=== PATIENT | female | born 1950 | race Caucasian/White ===

== ENCOUNTER 2018-12-26 15:39 | Outpatient (CLI) | payer OTHER, SELFPAY ==
[2018-12-26 17:11] LABS: Calculated LDL 124 mg/dL; Cholesterol 211 mg/dL (50-200); Glucose 136 mg/dL (70-100); HDL Cholesterol 71 mg/dL (40-60); Triglyceride 81 mg/dL (30-150)
== END 2018-12-26 15:59 ==
PROVIDERS: PCP Family Medicine; Visit Provider Family Medicine
DX: Z13.1 Encounter for screening for diabetes mellitus (principal); Z13.220 Encounter for screening for lipoid disorders
CPT/HCPCS: 36415; 80061; 82947; 83721

== ENCOUNTER 2019-12-10 01:10 | Outpatient (CLI) | payer OTHER, SELFPAY ==
[2019-12-10 14:08] LABS: Hemoglobin A1C 5.7 % (3.8-5.6)
== END 2019-12-10 01:30 ==
PROVIDERS: PCP Family Medicine; Visit Provider Family Medicine
DX: R73.9 Hyperglycemia, unspecified (principal)
CPT/HCPCS: 36415; 83036

== ENCOUNTER 2020-03-18 13:31 | Outpatient (CLI) | payer OTHER, SELFPAY ==
--- NOTE | 2020-03-18 14:00 | DI.RAD_ITS ---
EXAM: XR HEEL LT OS CALCIS CLINICAL HISTORY: heel pain with ambulation PAIN LT FOOT M79.672. TECHNIQUE: 2D digital imaging was performed. COMPARISON: No exams were available for comparison FINDINGS: BONES: No acute fracture is present. No bony destructive lesion is seen. Small plantar calcaneal spu r. JOINTS: No dislocation present. SOFT TISSUE: Normal. IMPRESSION: Small plantar spur. DATA REPOSITORY: RADIATION DOSE DELIVERED:
--- NOTE | 2020-03-18 14:39 | DI.RAD_ITS ---
EXAM: XR HEEL RT OS CALCIS CLINICAL HISTORY: heel pain with ambulation PAIN RT FOOT M79.671,. TECHNIQUE: 2D digital imaging was performed. COMPARISON: No exams were available for comparison FINDINGS: BONES: No acute fracture is present. No bony destructive lesion is seen. Small spur at the plantar s urface of the calcaneus. JOINTS: No dislocation present. SOFT TISSUE: Normal. IMPRESSION: Small plantar spur. DATA REPOSITORY: RADIATION DOSE DELIVERED:
== END 2020-03-18 13:51 ==
PROVIDERS: PCP Family Medicine; Visit Provider Nurse Practitioner Family
DX: M77.32 Calcaneal spur, left foot (principal); M77.31 Calcaneal spur, right foot
CPT/HCPCS: 73650

== ENCOUNTER 2020-09-23 07:16 | Emergency (ER) | payer OTHER, SELFPAY ==
[2020-09-23 07:21] VITALS: BP 181/114; PULSE 75; RESP 12; O2SAT 98
--- NOTE | 2020-09-23 07:30 | DI.RAD_ITS ---
EXAM: XR FINGER LT MIDDLE CLINICAL HISTORY: suspected distal extensor tendon tear, r/o fx. TECHNIQUE: 2D digital imaging was performed. COMPARISON: No exams were available for comparison FINDINGS: There is flexion deformity at the DIP joint of the 3rd-middle finger. A small calcific density is no delmar volar to this level possibly representing avulsion fracture. The flexion deformity implies that there is unopposed flexion implying extensor tendon injury. There does not appear to be an obvious l aceration. There is no radiopaque foreign body. IMPRESSION: DATA REPOSITORY: RADIATION DOSE DELIVERED:
--- NOTE | 2020-09-23 07:35 | ED.GENADUL_ITS ---
Discharge Plan Disposition Patient Disposition: HOME Condition: Stable Discharge Details Clinical Impression: Mallet deformity of left middle finger Primary Care Provider: Rafael Loyola ED Provider: Patricia Carlton Home Meds and New Rx's Prescriptions: Continued metformin 500 mg tablet 500 mg PO BID Qty: 180 RF: 3 Discharge Instructions Instructions: Tendon Rupture (ED) Additional Instructions: Keep the splint in place at all times. You can remove the splint briefly for hand washing or showering but replace immediately when finished. Be sure to apply tape to both the middle and end parts of your splint to keep the tip of your finger fully extended. An appointment has been made for you with orthopedist Dr. Edouard on September 29 at 11 AM. Return immediately to the emergency department if you develop any worsening or new concerning symptoms. Referrals: Pop Edouard MD [ [facility] STAFF PHYSICIAN] - Discharge Data Discharge Physician: Patricia Carlton Medical Decision Making 59-year-old female presents with left third finger injury sustained while cleaning her floor at home this morning. Patient has a flexion deformity with inability to extend at the DIP joint of the left third middle finger. There is no ecchymosis, edema or tenderness. The left third middle finger PIP and MCP joints have normal extension. Appears consistent with mallet finger. Will obtain an x-ray to rule out avulsion fracture. Imaging reviewed with Dr. Edouard -appears consistent with classic mallet finger injury. No obvious fracture or dislocation. He recommends splint applied to the dorsal aspect with taping to keep DIP in full extension. Splint applied to patient's finger. Patient was given tape for home to reapply after handwashing and showering. An appointment was made for patient with Dr. Edouard for a full 6:11 AM. Usual and customary return precautions given prior to discharge. Patient's blood pressure elevated while in the ED. Rechecked and slightly down trended. Patient states she does not have a known history of hypertension and does not take blood pressure medication. She denies any chest pain or headache. She is advised to call her primary care doctor today to arrange a follow-up appointment for recheck of her blood pressure and consideration for starting blood pressure medication. Medical Records Medical records reviewed: Yes I reviewed the patient's medical records. Imaging Data Radiologic Study: Radiologist's impression: XR FINGER LT MIDDLE CLINICAL HISTORY: suspected distal extensor tendon tear, r/o fx. TECHNIQUE: 2D digital imaging was performed. COMPARISON: No exams were available for comparison FINDINGS: There is flexion deformity at the DIP joint of the 3rd-middle finger. A small calcific density is noted volar to this level possibly representing avulsion fracture. The flexion deformity implies that there is unopposed flexion implying extensor tendon injury. There does not appear to be an obvious lacera tion. There is no radiopaque foreign body. HPI General Mode of arrival: ambulatory . Date/Time Provider Initiated Documentation: 09/23/20 07:35 . Limitations to Documentation: no limitations . Information obtained by: patient . HPI Narrative: Patient is a 69-year-old female who presents with left third finger injury sustained while cleaning a floor at home this morning. Patient states she was cleaning vigorously with her left hand when she felt a crack in her distal left middle finger. She has minimal pain but cannot straighten the tip of her left middle finger. She denies any other injuries. Related Data Home Medications Medication Instructions Recorded Confirmed metformin 500 mg tablet 500 mg PO BID #180 tab 07/24/20 09/23/20 Previous Rx's Medication Instructions Recorded metformin 500 mg tablet 500 mg PO BID #180 tab 07/24/20 Allergies Allergy/AdvReac Type Severity Reaction Status Date / Time zolpidem [Zolpidem] Allergy Intermediate rash Verified 09/23/20 07:28 General Stated Complaint: Orthopedic OMAR: 4 Review of Systems All systems reviewed & are unremarkable except as noted in HPI and below PFSH Medical History Sensorineural hearing loss of both ears Surgical History Bladder Surgery suspension Colonoscopy - MAC (05/28/13) Vaginal hysterectomy left ovary remains Family History Mother , 76 Diabetes Lymphoma Father , 85 No problems noted. Brother Diabetes Maternal Grandmother Stroke Paternal Grandmother Cancer Brother No problems noted. Brother No problems noted. Sister No problems noted. Sister No problems noted. Sister No problems noted. Sister No problems noted. Son No problems noted. Daughter No problems noted. Social History (Reviewed 03/18/20 @ 18:07 by OTONIEL Worthington Smoking/Tobacco Use Status: Never Smoking risk assessment performed?: Yes Alcohol Intake: current Alcohol Intake frequency: a few times a month Alcohol type: beer and wine Drug use: Never Substance use type: does not use Caregiver/Support person: No Household members: children and other Details: grandchild Housing: house Communication Needs: None Do you need help understanding health information?: Never Pets and animals: Yes Pets and animals: cat(s), dog(s) and other Details: rat Sexually active: Yes Do you think of yourself as: straight/heterosexual Current gender identity: female and decline to answer What is your relationship status?: refused to answer How often do you talk on the phone with friends or family?: decline to answer How often do you get together with friends or relatives?: decline to answer How often do you attend hoahaoism or cheondoism services?: decline to answer Do you belong to any clubs or organized social groups?: decline to answer Panel score (0-1 are the most socially isolated patients): 0 What type of physical activity do you participate in: decline to answer Duration: 15-30 minutes/day Frequency: 1-2 times per week Renetta/Buddhism: No preference Special renetta needs: No Seatbelt use: always Drive intox or ride w/intox driver messenger: No Do you feel safe at home: Yes Do you feel safe in your relationship?: Yes Exam Const General: cooperative, healthy appearing and no acute distress HENMT Head: normal to inspection Mouth: oral mucosae normal Eyes General: appearance normal, both eyes and all related structures Neck Neck: normal visual inspection Resp Effort & Inspection: normal respiratory effort and able to speak in complete sentences Cardio Rate: regular rate Skin General skin exam: no rashes or lesions noted Neuro General: patient alert, patient awake and patient oriented x3 Motor: muscle tone normal throughout Extrem Hand/finger images: 1. Flexion deformity with inability to extend at DIP joint. Normal extension at PIP and MCP joint L 3rd finger. 2. Flexion deformity with inability to extend at DIP joint. Other: There is no L 3rd middle finger erythema, edema, ecchymosis or tenderness to palpation. Psych Appearance: grossly normal Affect: normal affect Course Vital Signs Vital signs: Vital Signs Pulse 75 09/23/20 07:21 Respiratory Rate 12 09/23/20 07:21 Blood Pressure 181/114 H 09/23/20 07:21 Pulse Oximetry 98 09/23/20 07:21 Pulse 75 09/23/20 07:21 Respiratory Rate 12 09/23/20 07:21 Respiratory Effort Non-Labored 09/23/20 07:25 Blood Pressure 181/114 H 09/23/20 07:21 Blood Pressure Position Sitting 09/23/20 07:21 Pulse Oximetry 98 09/23/20 07:21 Oxygen Delivery Method Room Air 09/23/20 07:21 Oxygen Flow Rate 0 09/23/20 07:21 Pain Level 3 09/23/20 07:25 Procedures Orthopedic Splinting/Casting Injury #1: Side: left Upper Extremity Injury Location: finger Upper Extremity Immobilizer: aluminum form splint
[2020-09-23 08:21] VITALS: BP 177/102; PULSE 76; RESP 12; O2SAT 98
== END 2020-09-23 08:23 | disposition home or self-care (01) ==
PROVIDERS: Emergency Provider Physician Assistant; PCP Family Medicine
DX: M20.012 Mallet finger of left finger(s) (principal)
CPT/HCPCS: 29130; 99283; 73140

== ENCOUNTER 2021-11-24 16:24 | Outpatient (CLI) | payer BC, SELFPAY ==
--- NOTE | 2021-11-24 16:15 | RT.EKG_ITS ---
APPROVED REPORT Exam: Resting ECG Reason for Exam: chest pain Patient Location: O HR:73 bpm ECG Measurements Heart Rate 73 AXIS MD 137 P 63 QRSd 68 QRS 28 QT 405 T 31 QTc 448 Conclusion Sinus rhythm...normal P axis, V-rate 60- 99 Probable left atrial enlargement...P >50mS, <-0.10mV V1
== END 2021-11-24 16:25 | disposition home or self-care (01) ==
PROVIDERS: PCP Family Medicine; Visit Provider Family Medicine
DX: R07.9 Chest pain, unspecified (principal); R10.9 Unspecified abdominal pain; R73.9 Hyperglycemia, unspecified; Z13.6 Encounter for screening for cardiovascular disorders
CPT/HCPCS: 93010

== ENCOUNTER 2021-11-30 01:40 | Outpatient (CLI) | payer BC, SELFPAY ==
[2021-11-30 16:26] LABS: HCT 40.2 % (36.0-46.0); HGB 13.1 g/dL (11.2-15.7); MCH 29.4 pg (27.0-33.0); MCHC 32.6 % (32.0-36.0); MCV 90 fL (80-95); MPV 11.3 fL (8.0-11.0); Platelet Count 254 10^3/uL (130-400); RBC 4.46 10^6/uL (3.93-5.22); RDW 13.2 % (11.7-14.6); RDW-SD 43.6 fL; WBC 6.53 10^3/uL (4.4-10.8)
[2021-11-30 16:51] LABS: Hemoglobin A1C 5.8 % (<5.7)
[2021-11-30 16:56] LABS: ALT 22 U/L (14-59); AST 16 U/L (15-37); Albumin 3.8 g/dL (3.4-5.0); Alkaline Phosphatase 84 U/L (46-116); Anion Gap 9.2 mmol/L (3-11); BUN 22 mg/dL (7-18); Bilirubin, Total 0.5 mg/dL (0.2-1.0); C-Reactive Protein 0.07 mg/dL (0.0-0.3); CO2 25.8 mmol/L (21.0-32.0); CREATININE 0.9 mg/dL (0.55-1.02); Chloride 106 mmol/L (98-107); Glucose 133 mg/dL (74-106); Lipase 81 U/L (73-393); Potassium 3.5 mmol/L (3.5-5.1); Sodium 141 mmol/L (136-145); TSH (W/Ref FT4) 2.59 uIU/mL (0.36-3.74); Total Protein 7.9 g/dL (6.4-8.2)
[2021-11-30 17:12] LABS: Calculated LDL 106 mg/dL (<100); Cholesterol 212 mg/dL (<200); HDL Cholesterol 82 mg/dL (40-60); Triglyceride 123 mg/dL (<150)
[2021-11-30 17:31] LABS: Vitamin B12 237 pg/mL (193-986)
== END 2021-11-30 01:41 | disposition home or self-care (01) ==
LOC: LBO 01:41
PROVIDERS: PCP Family Medicine; Visit Provider Family Medicine
DX: D64.9 Anemia, unspecified (principal); I10 Essential (primary) hypertension; R10.9 Unspecified abdominal pain; R07.9 Chest pain, unspecified; R73.9 Hyperglycemia, unspecified; Z13.6 Encounter for screening for cardiovascular disorders
CPT/HCPCS: 36415; 80053; 80061; 83690; 85027; 82043; 82570; 82607; 83036; 84443; 86140

== ENCOUNTER 2021-12-01 14:52 | Outpatient (CLI) | payer BC, SELFPAY | END 2021-12-01 14:53 | disposition home or self-care (01) | LOC: DI.CM 14:52 | PROVIDERS: PCP Family Medicine; Visit Provider Family Medicine | DX: R69 Illness, unspecified (principal) | CPT/HCPCS: 93010 ==

== ENCOUNTER 2021-12-02 10:05 | Outpatient (REF) | payer BC, SELFPAY ==
[2021-12-02 11:47] LABS: COMMENT (LAB VIEW ONLY) 82.87 mg/dL; Microalb ug/mg Crea 19.9 ug/mg Cr
== END 2021-12-02 10:06 | disposition home or self-care (01) ==
LOC: LBN 10:05
PROVIDERS: PCP Family Medicine; Visit Provider Family Medicine
DX: E11.9 Type 2 diabetes mellitus without complications (principal)
CPT/HCPCS: 82043; 82570

== ENCOUNTER 2021-12-24 02:23 | Outpatient (CLI) | payer BC, SELFPAY ==
[2021-12-24 14:44] LABS: Source Nasal/Nares
[2021-12-24 18:52] LABS: COVID-19 PCR Negative (Negative)
== END 2021-12-24 02:24 | disposition home or self-care (01) ==
LOC: LBO 02:23
PROVIDERS: PCP Family Medicine; Visit Provider Surgery
DX: Z20.822 Contact with and (suspected) exposure to COVID-19 (principal); Z01.818 Encounter for other preprocedural examination
CPT/HCPCS: 87635

== ENCOUNTER 2021-12-28 06:24 | Day surgery (SDC) | payer BC, SELFPAY ==
--- NOTE | 2021-12-27 16:22 | W.PM.OP ---
Date of service: 12/28/21 Time of Service: 09:27 Operative Note Operative Note DATE OF PROCEDURE: 12/28/21 PRE-OP DIAGNOSIS: gallstones POST-OP DIAGNOSIS: same PROCEDURE: Lap marcos SURGEON: Colette Blackburn PROCESSING ASSOCIATE: Génesis Velasquez ANESTHESIA TYPE: Local By Surgeon and General LMA/ETT Refer to Anesthesia Record ESTIMATED BLOOD LOSS: 20 PATHOLOGY: other COMPLICATIONS: None Patient was transported to: PACU Patient's condition: stable Procedure Description: The pt is seen at the request of there PCP regarding acute on chronic cholecystitis, cholelithiasis. The pt has failed outpt conservative medical measures and is here today for laparoscopic cholecystectomy. Informed consent was obtained, explaining risks and benefits of the procedure including but not limited to bleeding, infection, pneumonia, blood clots, possible damage to bowel, bladder, blood vessels, bile ducts, possible open procedure, complications of general anesthesia and other unforetold complications. PROCEDURE: The patient agrees and is brought to the operative room suite and placed in supine position. Anesthesia was administered per the Department of Anesthesia. The patient did receive IV antibiotics. NG tube and Huang catheter are placed. The patient was prepped and draped in the usual sterile fashion using DuraPrep scrub solution. Pause for the cause was done. 20 mL of 1% buffered lidocaine was used for local anesthetization. A stab incision was made in the umbilicus and the Verres inserted. Drop test was positive and insufflation was begun. When 15 mm of pressure was noted on the monitor, the Veress was removed and #5 port inserted. The camera was inserted through the port and shows no damage to underlying structures. A 10 mm port was then placed in the epigastric position under direct visualization following creation of local field blocks as well as two 5 mm ports in the right upper quadrant. The camera was moved to one of the secondary ports so we could view the umbilical trocar site, and there is are no hernias or adhesions. The omentum is densely adhered up to the gallbladder. This is taken down with a combination of sharp and blunt dissection. Electrocautery is used to provide hemostasis. The gallbladder is completely filled with stones, Making it difficult to grasp and maneuver the gallbladder. the gallbladder fundus was grasped and retracted towards the right shoulder. Infundibulum was grasped and retracted laterally. The hepat-duodenal ligament is entered. The cystic duct and artery are dissected out and the most inferior portion of the gallbladder plate is removed from the liver and the critical view of safety was obtained after clearing away all fatty material. Endo Clips were placed across the duct and artery and these structures are divided. The remainder of the gallbladder was excised from the liver bed. I did have to enlarge the epigastric incision to facilitate gallbladder removal. the gallbladder was placed in a bag and brought out. Examination of the gallbladder shows indeed the cystic duct and artery to have been divided. The remainder of the abdomen was copiously irrigated with a liter of saline. All saline is removed. Floseal was placed in the liver bed. There is no bleeding or bile leakage from the liver bed or the clips sites. All ports and instruments are removed. SPonge and needle counts are correct. Pneumoperitoneum is evacuated and the port sites are monitored to make sure there is no bleeding at the time of desufflation. ??Epigastric port site is closed in 2 layers with 0 Vicryl. port sites are irrigated and the skin is closed with 4-0 Monocryl in a running subcuticular fashion. Skin glue sterile dressings are applied. The patient tolerated the procedure well without complications, transferred to the recovery room in stable condition. COLETTE BLACKBURN, DO
--- NOTE | 2021-12-27 16:25 | PDOC.DSDIS_ITS ---
Discharge Plan Disposition Patient Disposition: HOME Condition: Good Discharge Details Reason For Visit: gallbladder removal Attending Provider: Colette Gaona Primary Care Provider: Rafael Loyola Home Meds and New Rx's Prescriptions: New ondansetron HCl 4 mg tablet 4 mg PO Q6H PRNQty: 7 0RF tramadol [Ultram] 50 mg tablet 50 mg PO Q6H PRN (Reason: pain (scale score 7-10)) Qty: 10 0RF Rx Instructions: will cause constipation Continued amlodipine 5 mg tablet 5 mg PO DAILY Discontinued omeprazole 20 mg capsule,delayed release(DR/EC) 20 mg PO DAILY Qty: 30 0RF Label Comments: pt. states she has been taking because no issues Discharge Instructions Additional Instructions: Care after Gallbladder Surgery -Pain control: ?For the first 72 hours after surgery, take you pain meds continuously and not just when you have pain.?? Alternate Tylenol 1000mg by mouth every 8 hours, and Ibuprofen 600mg every 6 hours.? Make sure you take ibuprofen with food and not on an empty stomach.? ??Use the tramadol for breakthrough pain- pain that is greater than a 7. ?- Use ICE! Ice really helps to keep the swelling down, and swelling causes pain. ??Twenty minutes on, and then off, continuously for the first 72hours.? After the first 72hrs, you can just use the Tylenol, ibuprofen or Celebrex, and ice, ?when you have pain.?? If you are taking narcotic pain medication, follow the instructions on the label and do not drive. Pain medications can make you very constipated. Make sure you are moving your bowels daily. If not, take Miralax, milk of magnesia or magnesium citrate.? - Anesthesia makes you very constipated.? Take a dose of milk of magnesia the morning after surgery. ? Use an ice bag for the first 72 hours. This helps to decrease swelling, which causes pain. It is normal to be more sore/painful and swollen towards the end of the day and first thing in the morning. ? Gallbladder surgery can make you very nauseated; use Zofran for nausea, for the first 24 hours. The nausea generally stops after 24 hours. ? Use milk of magnesia or prune juice to prevent constipation (this is a particular side effect of pain medication and anesthesia). Do not allow yourself to become constipated. ? Avoid fatty or greasy foods; introduce these slowly, with care, after about 1 month. High-fat foods include: ? Foods that are fried, like Vietnamese fries and potato chips ? High-fat meats, such as viramontes, bologna, sausage, ground beef, and ribs, pork products ? High-fat dairy products, such as cheese, ice cream, cream, whole milk, and sour cream ? Pizza ? Foods made with lard or butter ? Creamy soups or sauces ? Meat gravies ? Chocolate ? Oils, such as palm and coconut oil ? Skin of chicken or turkey ? Nuts and nut butters ? Avocadoes ? Start out eating very small, bland amounts of food. Do not take pain pills on an empty stomach. - You will notice purple discoloration around the incisions.? This is the ?skin glue?.? This will wear off on its own.? It is OK to shower after 24hrs.? You do not need to cover the incisions. -You should walk frequently, gradually, increasing the distance. You may climb stairs, just go slowly. ? Do not go swimming or sit in a hot tub for two weeks. ? There are no stitches to remove. ? Do not drive your car x72hrs and then only if you have no pain and can move freely. Do not drive if you are taking pain narcotic pain medications. ? You may resume sexual activity whenever pain and soreness subside, usually in 2 weeks. ? Do no lift anything over 5 lbs. for two weeks. ? You may return to work in one week, or when you feel able, provided you do not have to do any heavy lifting or prolonged standing. ? You should return to Dr. Gaona?s office for a post-op appointment about two weeks after surgery. A follow-up should have been scheduled for you already.? If there is not, please call the Surgical [facility] at: [phone] to schedule an appointment. My Medications for pain and nausea are: Tylenol/ibuprofen ?and ultram- for severe pain ?and Zofran-nausea When to Call the Office: ? If the incision becomes red or swollen, or there is more than a little denise inage from it. ? If you develop a temperature higher than 100.5 F. ? If your eyes turn yellow ? Vomiting and can?t keep fluids down Activity:: see above Remove Dressings/Wound Care:: 24 hours Shower/Bathe:: 24 hours Diet:: low fat Discharge Orders Discharge Orders: Discharge Order (Routine); Ordered 12/27/21 Ordered By: Colette Gaona DS: Diagnosis Discharge Diagnosis (1) S/P laparoscopic cholecystectomy: Status: Acute
[2021-12-28] VITALS (8 sets, daily range): BP systolic 104–151; BP diastolic 67–100; PULSE 52–74; RESP 16–20; TEMP 35.9–36.5; O2SAT 95–98; BMI 25.7
[2021-12-28] MEDS: Gabapentin 300 MG CAP 600 MG PO (06:54)
[2021-12-28] MEDS: Acetaminophen 500 MG TAB 1000 MG PO (06:54)
--- NOTE | 2021-12-28 07:04 | W.ANESPRE ---
General Info Date of Service Date Performed: 12/28/21 Height: 5 ft 1 in Weight: 61.8 kg Body Mass Index (BMI): 25.7 Surgical Procedure: Operation Date: 12/28/21 07:40 Proposed Procedure Side Surgeon p Cholecystectomy Laparoscopic possible Open Colette Gaona DO Meds Allergies and Home Medications Allergies Allergy/AdvReac Type Severity Reaction Status Date / Time zolpidem [Zolpidem] Allergy Intermediate rash Verified 12/28/21 06:34 Home Medication Medication Instructions Recorded omeprazole 20 mg capsule,delayed 20 mg PO DAILY #30 caps 11/24/21 release amlodipine 5 mg tablet 5 mg PO DAILY 12/16/21 Current Visit Medications: Current Medications Generic Name Dose Route Start Last Admin Trade Name Freq PRN Reason Stop Dose Admin Acetaminophen 1,000 mg 12/28/21 06:00 12/28/21 06:54 Acetaminophen 500 Mg Tab PO 01/23/22 23:59 1,000 mg PREOP JOSHUA Administration Gabapentin 600 mg 12/28/21 06:00 12/28/21 06:54 Gabapentin 300 Mg Cap PO 01/23/22 23:59 600 mg PREOP JOSHUA Administration Ringer's Solution 1,000 mls @ 80 mls/hr 12/28/21 06:00 IV 01/23/22 23:59 INFUSION JOSHUA Cefazolin Sodium/Dextrose 2 gm in 50 mls @ 100 mls/hr 12/28/21 06:00 Ancef Duplex IVPB 01/23/22 23:59 PREOP JOSHUA Ondansetron HCl 4 mg/ Sodium 52 mls @ 200 mls/hr 12/27/21 16:21 Chloride IVPB Q6H PRN PRN IV Miscellaneous Supplies 1 each 12/28/21 06:00 Iv Access IV 01/23/22 23:59 DIRECTED JOSHUA Morphine Sulfate 2 mg 12/27/21 16:21 Morphine 4 Mg/Ml Syr IVP Q1H PRN PRN Sodium Chloride 0 ml 12/28/21 06:00 Normal Saline Flush 10 Ml Syr IV 01/23/22 23:59 PRN PRN Sodium Chloride 0 ml 12/28/21 06:00 Normal Saline 10 Ml Vial IJ 01/23/22 23:59 DIRECTED PRN Sterile Water 0 ml 12/28/21 06:00 Water,Injection,Sterile 10 Ml Vial IJ 01/23/22 23:59 DIRECTED PRN Tramadol HCl 50 mg 12/27/21 16:21 Tramadol 50 Mg Tab PO Q6H PRN PRN Pain PFSH Active Problems Active Problems: Problem Status Onset Code History of colonoscopy Z98.890 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) Plantar fasciitis, bilateral Sensorineural hearing loss of both ears Sensorineural hearing loss of both ears Surgical History Surgical History (Updated 12/28/21 @ 06:39 by Kay Nelson) Bladder Surgery suspension Colonoscopy - MAC (05/28/13) History of bladder repair surgery Hx of shoulder surgery manipulation Status post vaginal hysterectomy Vaginal hysterectomy left ovary remains Tobacco Smoking/Tobacco Use Status: Never Passive smoking exposure: Yes Alcohol Alcohol Intake: current Alcohol intake frequency: a few times a month Alcohol type: beer and wine Substance Use Substance use: Never Substance use type: does not use Details: alcohol: t-2, two beers Vital Signs and Lab Results Vital Signs Most Recent Vital Signs in EMR: Most Recent Vital Signs Temp Pulse Resp BP Pulse Ox 36.5 C 74 20 149/100 H 97 12/28/21 06:44 12/28/21 06:44 12/28/21 06:44 12/28/21 06:44 12/28/21 06:44 Lab Results Blood Type / Crossmatch: No Data to Display Complete Blood Count: White Blood Count 6.53 10^3/uL (4.4-10.8) 11/30/21 16:10 Red Blood Count 4.46 10^6/uL (3.93-5.22) 11/30/21 16:10 Hemoglobin 13.1 g/dL (11.2-15.7) 11/30/21 16:10 Hematocrit 40.2 % (36.0-46.0) 11/30/21 16:10 Platelet Count 254 10^3/uL (130-400) 11/30/21 16:10 Complete Metabolic Panel: Sodium Level 141 mmol/L (136-145) 11/30/21 16:10 Potassium Level 3.5 mmol/L (3.5-5.1) 11/30/21 16:10 Chloride Level 106 mmol/L (98-107) 11/30/21 16:10 Carbon Dioxide Level 25.8 mmol/L (21.0-32.0) 11/30/21 16:10 Blood Urea Nitrogen 22 mg/dL (7-18) H 11/30/21 16:10 Creatinine 0.9 mg/dL (0.55-1.02) 11/30/21 16:10 Estimated GFR/1.73 m2 >= 60.00 (mL/min/1.73m2) 11/30/21 16:10 Calcium Level 9.0 mg/dL (8.5-10.1) 11/30/21 16:10 Albumin 3.8 g/dL (3.4-5.0) 11/30/21 16:10 Glucose Level 133 mg/dL (74-106) H 11/30/21 16:10 Hemoglobin A1c 5.8 % (<5.7) H 11/30/21 16:10 C-Reactive Protein 0.07 mg/dL (0.0-0.3) 11/30/21 16:10 Liver Function Panel: Alanine Aminotransferase (ALT/SGPT) 22 U/L (14-59) 11/30/21 16:10 Aspartate Amino Transf (AST/SGOT) 16 U/L (15-37) 11/30/21 16:10 Coagulation Panel: No Data to Display Cardiac Panel: No Data to Display Arterial Blood Gas: No Data to Display Venous Blood Gas: No Data to Display Pancreas Panel: Lipase 81 U/L (73-393) 11/30/21 16:10 Thyroid Panel: Thyroid Stimulating Hormone (TSH) 2.59 uIU/mL (0.36-3.74) 11/30/21 16:10 Infectious Disease: Coronavirus (COVID-19)(PCR) Negative (Negative) 12/24/21 14:10 Coronavirus 2019 Source Nasal/Nares 12/24/21 14:10 Blood Cultures: No Data to Display Toxicology Panel: No Data to Display Anesthesia Assessment and Plan Anesthesia History Personal History: No History of Anesthesia Complications Family History: No Family History of Anesthesia Complications Exercise Tolerance Exercise Tolerance: Metabolic Equivalents>4 Pertinent Negatives Pertinent Negatives: No Major Cardiovascular Symptoms or Complaints, No Major Pulmonary Symptoms or Complaints and No History of CVA/TIA Cardiac & Pulmonary Exam Cardiac Exam: Normal S1/S2 Heart Sounds Pulmonary Exam: Clear Bilateral Breath Sounds Implantable Cardiac Device Does patient have a Pacemaker or an ICD?: No Airway Exam Known Difficult Airway: No Mallampati Class: 2 Mouth Opening: Normal (> 3cm) Thyromental Distance: Greater than 3 cm Neck Range of Motion: Full ROM Neck Circumference: Normal Teeth Condition: Generalized Poor Dentition ASA Classification ASA Score: ASA 2 Emergency Case?: No NPO Status NPO Status: NPO Clears >2 hours, Solids >8 hours Anesthesia Plan Resuscitation Status: Full Code Anesthesia Technique: General Anesthesia Airway Planned: Endotracheal Tube Monitors Used: Standard Monitors
[2021-12-28] MEDS: Lactated Ringers 1,000 ML 80 ML IV (07:10)
[2021-12-28] MEDS: ceFAZolin 2 GM/50 ML BAG IVPB (07:42)
--- NOTE | 2021-12-28 09:39 | GB_PTH ---
PATIENT: Sonja Carr LOC: [facility] U#:[id number] AGE/SX: 71/F ROOM: RE12/28/[address]: Colette Gaona : 1950 BED: DIS: 12/28/2021 SPEC #: [id number] RECD: 12/28/21 10:10 STATUS: [place] REQ #: [id number] JOSEP: 12/28/21 09:[address]: Colette Gaona DEPT: Surgical Specimen RECD BY: Jennifer Hagen ENTERED: 12/28/21 10:11 SP TYPE: GB OTHR DR: Rafael Loyola MD Tissues: 1 - GALLBLADDER Procedures: GROSS AND MICRO LEVEL 3 Comments: [id number]
[2021-12-28] MEDS: traMADol 50 MG TAB PO (10:37)
--- NOTE | 2021-12-28 11:07 | W.ANESPOSTOP ---
Postoperative Evaluation Date, Time and Location Date Performed: 12/28/21 Time Performed: 11:07 Patient Location: Day Surgery Unit Vital Signs Most Recent Imported Vital Signs: Most Recent Vital Signs Temp Pulse Resp BP Pulse Ox 36.0 C L 65 18 145/80 H 97 12/28/21 10:39 12/28/21 10:39 12/28/21 10:39 12/28/21 10:39 12/28/21 10:39 Pain Score Most Recent Pain Score: Most Recent Pain Score Pain Level 6 12/28/21 10:39 Assessment Mental Status: Awake (Alert & Oriented to Patient Baseline) Airway and Respiratory Function: Patent airway with normal (patient baseline) respiratory exam Cardiovascular Function: Hemodynamically Stable Hydration Status: Adequately Hydrated Nausea & Vomiting: No Nausea or Vomiting Pain: Pain is tolerable per patient Peripheral Nerve Block: Patient did not receive a nerve block
== END 2021-12-28 12:52 | disposition home or self-care (01) ==
PROVIDERS: PCP Family Medicine; Visit Provider Surgery
PROC: 0FT44ZZ Resection of Gallbladder, Percutaneous Endoscopic Approach (ICD-10-PCS; CPT 47562; principal; 2021-12-28 07:30)
DX: K80.12 Calculus of gallbladder with acute and chronic cholecystitis without obstruction (principal); K57.30 Diverticulosis of large intestine without perforation or abscess without bleeding; M10.9 Gout, unspecified; E74.39 Other disorders of intestinal carbohydrate absorption; Z79.899 Other long term (current) drug therapy
CPT/HCPCS: 47562; 88304; J0690; J1100; J1885; J2405; J2704; J3010

== ENCOUNTER → 2022-01-14 01:32 | Outpatient (CLI) | payer BC, SELFPAY | PROVIDERS: PCP Family Medicine; Visit Provider Physical Therapy Assistant ==

== ENCOUNTER 2023-08-23 10:22 | Outpatient (CLI) | payer BC, SELFPAY ==
[2023-08-23 13:13] LABS: ALT 21 U/L (14-59); AST 19 U/L (15-37); Albumin 3.8 g/dL (3.4-5.0); Alkaline Phosphatase 91 U/L (46-116); Anion Gap 7.4 mmol/L (3-11); BUN 17 mg/dL (7-18); Bilirubin, Total 0.6 mg/dL (0.2-1.0); CO2 29.6 mmol/L (21.0-32.0); CREATININE 0.8 mg/dL (0.55-1.02); Calcium 9.6 mg/dL (8.5-10.1); Calculated LDL 135 mg/dL (<100); Chloride 105 mmol/L (98-107); Cholesterol 230 mg/dL (<200); Estimated GFR 79.22 (mL/min/1.73m2); Glucose 100 mg/dL (74-106); HDL Cholesterol 84 mg/dL (40-60); Potassium 4.8 mmol/L (3.5-5.1); Sodium 142 mmol/L (136-145); TSH (W/Ref FT4) 2.24 uIU/mL (0.36-3.74); Total Protein 8.3 g/dL (6.4-8.2); Triglyceride 55 mg/dL (<150)
[2023-08-23 13:21] LABS: Hemoglobin A1C 5.8 % (<5.7)
[2023-08-23 22:58] LABS: Hepatitis C Ab w Rflx HCV PCR Negative (Negative)
== END 2023-08-23 10:23 | disposition home or self-care (01) ==
LOC: LOS 10:23
PROVIDERS: PCP Family Medicine; Referring Provider Nurse Practitioner Family; Visit Provider Nurse Practitioner Family
DX: Z00.00 Encounter for general adult medical examination without abnormal findings (principal); Z13.1 Encounter for screening for diabetes mellitus; Z13.220 Encounter for screening for lipoid disorders; Z13.228 Encounter for screening for other metabolic disorders; Z13.29 Encounter for screening for other suspected endocrine disorder; Z11.59 Encounter for screening for other viral diseases
CPT/HCPCS: 36415; 80053; 80061; 86803; 83036; 84443

== ENCOUNTER 2024-09-26 01:24 | Outpatient (CLI) | payer MEDICARE, SELFPAY ==
--- NOTE | 2024-09-26 07:45 | DI.DEXA_ITS ---
Exam(s) XR DEXA BONE DENSITY W/WO LETA EXAM: XR DEXA BONE DENSITY W/WO LETA CLINICAL HISTORY: osteoporosis screening IN POSTMENOPAUSAL STATUS,Z78.0 TECHNIQUE: COMPARISON: No exams were available for comparison FINDINGS: Lateral Spine Image: Unremarkable. No compression deformities identified. Left hip: Total T-Score: -1.2 Total Z-Score: 0.4 T- and Z-scores: Findings are consistent with osteopenia. Lumbar Spine: Total T-Score: -0.3 Total Z-Score: 1.9 T- and Z-scores: There is no evidence of osteoporosis. IMPRESSION: No evidence of osteoporosis.
--- NOTE | 2024-09-26 07:45 | DI.MAMMO_ITS ---
Exam(s) MAMMO SCREENING EXAM: MAMMO SCREENING CLINICAL HISTORY: screening,Z12.39. TECHNIQUE: Bilateral full field digital CC and MLO mammographic images were obtained with 3D tomosyn thesis and utilizing computer aided detection (CAD). COMPARISON: Prior outside mammograms 2010 and 2012 were reviewed. FINDINGS: There has been no significant change in the appearance and distribution of the fibroglandular tissue. Asymmetric densities bilaterally are unchanged from prior mammograms. There are no new spiculated masses nor new malignant appearing microcalcification groups. There is no significant architectural distortion nor skin thickening-retraction. IMPRESSION: Stable benign-appearing findings. No radiographic evidence of malignancy. BI-RADS Category 2 - Benign Findings Breast Density - Category B - Scattered areas of fibroglandular density Breast density Category C or D implies that the patient has dense breast tissue. Dense breast tissue can make it harder to find cancer on a mammogram. Dense breast tissue is also associated with an incr eased risk of breast cancer. This information about the result of the mammogram report was provided to the patient to raise their awareness. Use this report when you speak with the patient about their risks for breast cancer, which includes their family history. At that time, you may recommend additional screening tests (Ultrasoun d or MRI) as these tests may add significant information. A negative radiographic report should not delay biopsy if a dominant or clinically suspicious mass is present. Up to ten percent of cancers are not identified on mammography. A negative report may reinforce clinical impression. Adenosis and dense breasts may obscure an underlying neoplasm. False positive reports average 6 to 10%. Patient will receive a letter notifying them of these results.
== END 2024-09-26 01:44 ==
LOC: DI 01:24
PROVIDERS: PCP Nurse Practitioner Family; Visit Provider Nurse Practitioner Family
DX: Z78.0 Asymptomatic menopausal state (principal); Z13.820 Encounter for screening for osteoporosis; Z12.31 Encounter for screening mammogram for malignant neoplasm of breast
CPT/HCPCS: 77063; 77067; 77080

== ENCOUNTER 2024-09-26 12:27 | Outpatient (CLI) | payer MEDICARE, SELFPAY ==
[2024-09-26 12:34] LABS: Hemoglobin A1C 5.7 % (<5.7)
[2024-09-26 12:40] LABS: Anion Gap 7.9 mmol/L (3-11); BUN 19 mg/dL (7-18); CO2 29.1 mmol/L (21.0-32.0); CREATININE 0.7 mg/dL (0.55-1.02); Calcium 9.4 mg/dL (8.5-10.1); Calculated LDL 81 mg/dL (<100); Chloride 107 mmol/L (98-107); Cholesterol 185 mg/dL (<200); Estimated GFR 92.41 (mL/min/1.73m2); Glucose 98 mg/dL (74-106); HDL Cholesterol 89 mg/dL (>or=50); Potassium 4.1 mmol/L (3.5-5.1); Sodium 144 mmol/L (136-145); Triglyceride 79 mg/dL (<150)
[2024-09-27 10:30] LABS: Lab Add On Test DONE
[2024-09-27 11:06] LABS: Vitamin D 25 Total 17 ng/mL (30-100)
== END 2024-09-26 12:28 | disposition home or self-care (01) ==
LOC: LBO 12:28
PROVIDERS: PCP Nurse Practitioner Family; Visit Provider Nurse Practitioner Family
DX: E78.5 Hyperlipidemia, unspecified (principal); R73.03 Prediabetes; M85.80 Other specified disorders of bone density and structure, unspecified site
CPT/HCPCS: 36415; 80048; 80061; 82306; 83036